=== PATIENT | male | born 1945 | race Caucasian/White ===

== ENCOUNTER → 2016-03-31 | Outpatient (CLI) | payer MEDICARE | END | disposition home or self-care (01) | LOC: LABWHC1 08:18 | PROVIDERS: ATTEND Internal Medicine Endocrinology, Diabetes & Metabolism | DX: E11.65 Type 2 diabetes mellitus with hyperglycemia (principal) | CPT/HCPCS: 82043 ==

== ENCOUNTER → 2016-07-04 | Outpatient (CLI) | payer MEDICARE ==
[2016-07-04 10:45] LABS: ALT 30 U/L (21-72); AST 18 U/L (17-59); Alkaline Phosphatase 65 U/L (38-126); Anion Gap 10 mmol/L; Blood Urea Nitrogen 24 mg/dL (9-20); Calcium 9.6 mg/dL (8.4-10.2); Carbon Dioxide 29 mmol/L (22-30); Chloride 105 mmol/L (98-107); Cholesterol 179 mg/dL (<200); Glucose 134 mg/dL (74-99); HDL Cholesterol 39 mg/dL (40-60); Non-African American GFR(MDRD) >60 (>60 ml/min/1.73 sqM); Potassium 4.7 mmol/L (3.5-5.1); Sodium 144 mmol/L (137-145); Total Bilirubin 0.6 mg/dL (0.2-1.3); Total Protein 7.5 g/dL (6.3-8.2); Triglycerides 119 mg/dL (<150)
== END | disposition home or self-care (01) ==
LOC: LABWHC1 07:52
PROVIDERS: ATTEND Internal Medicine Endocrinology, Diabetes & Metabolism
DX: E11.65 Type 2 diabetes mellitus with hyperglycemia (principal)
CPT/HCPCS: 36415; 80053; 80061; 82043

== ENCOUNTER → 2017-01-24 | Outpatient (CLI) | payer MEDICARE ==
[2017-01-24 09:52] LABS: ALT 41 U/L (21-72); AST 19 U/L (17-59); Alkaline Phosphatase 66 U/L (38-126); Anion Gap 10 mmol/L; Blood Urea Nitrogen 23 mg/dL (9-20); Calcium 9.6 mg/dL (8.4-10.2); Carbon Dioxide 29 mmol/L (22-30); Chloride 105 mmol/L (98-107); Cholesterol 161 mg/dL (<200); Glucose 129 mg/dL (74-99); HDL Cholesterol 43 mg/dL (40-60); Non-African American GFR(MDRD) >60 (>60 ml/min/1.73 sqM); Potassium 4.7 mmol/L (3.5-5.1); Sodium 144 mmol/L (137-145); Total Bilirubin 0.6 mg/dL (0.2-1.3); Total Protein 7.6 g/dL (6.3-8.2)
[2017-01-24 17:21] LABS: Urine Creatinine 235.6 mg/dL
== END | disposition home or self-care (01) ==
LOC: LABWHC1 08:53
PROVIDERS: ATTEND Internal Medicine Endocrinology, Diabetes & Metabolism
DX: E11.65 Type 2 diabetes mellitus with hyperglycemia (principal)
CPT/HCPCS: 36415; 80053; 80061; 82043; 82570; 83036; 84443

== ENCOUNTER → 2017-10-10 | Outpatient (CLI) | payer MEDICARE ==
[2017-10-10 09:57] LABS: Albumin 4.1 g/dL (3.5-5.0); Calcium 9.5 mg/dL (8.4-10.2); Potassium 5.1 mmol/L (3.5-5.1); Total Bilirubin 0.6 mg/dL (0.2-1.3)
[2017-10-10 20:02] LABS: Hemoglobin A1C 8.9 % (4.0-6.0)
== END | disposition home or self-care (01) ==
LOC: LABWHC1 08:49
PROVIDERS: ATTEND Internal Medicine Endocrinology, Diabetes & Metabolism
DX: E11.65 Type 2 diabetes mellitus with hyperglycemia (principal); E29.1 Testicular hypofunction
CPT/HCPCS: 36415; 80053; 80061; 82043; 82570; 83036; 84403

== ENCOUNTER → 2017-12-05 | Outpatient (CLI) | payer MEDICARE ==
[2017-12-05 19:07] LABS: Shrimp IgE <0.10 kU/L; Soybean IgE <0.10 kU/L
[2017-12-05 19:08] LABS: Clam IgE <0.10 kU/L; Egg White IgE <0.10 kU/L; Scallop IgE <0.10 kU/L; Walnut IgE (Food) <0.10 kU/L
[2017-12-05 19:09] LABS: Codfish IgE <0.10 kU/L
[2017-12-05 19:10] LABS: Dermato. farinae IgE <0.10 kU/L; Peanut IgE <0.10 kU/L
[2017-12-05 19:11] LABS: Cat Epith & Dander IgE 0.24 kU/L; Dog Dander IgE 0.18 kU/L
[2017-12-05 19:12] LABS: Alternaria alternata IgE <0.10 kU/L; Cockroach IgE <0.10 kU/L
[2017-12-05 19:13] LABS: Birch IgE <0.10 kU/L; Maple (Box Elder) IgE <0.10 kU/L; Oak IgE <0.10 kU/L
[2017-12-05 19:14] LABS: Elm IgE <0.10 kU/L; Ragweed,Common IgE <0.10 kU/L
[2017-12-05 19:15] LABS: Red Top (Bentgrass) IgE <0.10 kU/L
== END ==
LOC: LABWHC1 08:30
PROVIDERS: ATTEND Internal Medicine Critical Care Medicine
DX: J45.40 Moderate persistent asthma, uncomplicated (principal)
CPT/HCPCS: 36415; 82785; 86003

== ENCOUNTER → 2018-06-26 | Outpatient (CLI) | payer MEDICARE ==
[2018-06-26 18:34] LABS: Albumin 4.5 g/dL (3.80-4.90); Albumin/Globulin Ratio 2.25 (1.60-3.17); Anion Gap 11.4 mmol/L (4.00-12.00); Calcium 9.2 mg/dL (8.7-10.3); Carbon Dioxide 23.6 mmol/L (21.6-31.8); LDL Cholesterol,Calculated 82.8 mg/dL (0.0-131.0); Potassium 4.1 mmol/L (3.5-5.5); Total Bilirubin 0.5 mg/dL (0.2-1.2); Total Protein 6.5 g/dL (6.2-8.2); VLDL Calculation 23.2 mg/dL (5.00-40.00)
== END | disposition home or self-care (01) ==
LOC: LABWHC1 08:48
PROVIDERS: ATTEND Internal Medicine Endocrinology, Diabetes & Metabolism
DX: E11.65 Type 2 diabetes mellitus with hyperglycemia (principal)
CPT/HCPCS: 36415; 80053; 80061; 82043; 82570; 84443

== ENCOUNTER → 2018-10-17 | Outpatient (CLI) | payer MEDICARE ==
[2018-10-17 08:56] LABS: Basophils % (A) 0 %; Eosinophils # (A) 0.2 k/uL (0-0.7); Eosinophils % (A) 3 %; HCT 45.6 % (39.0-53.0); HGB 14.7 gm/dL (13.0-17.5); Lymphocytes % (A) 26 %; MCH 31.1 pg (25.0-35.0); MCHC 32.2 g/dL (31.0-37.0); MCV 96.5 fL (80.0-100.0); Mean Platelet Volume 7.8; Monocytes # (A) 0.5 k/uL (0-1.0); Monocytes % (A) 6 %; Neutrophils # (A) 4.7 k/uL (1.3-7.7); Neutrophils % (A) 63 %; Platelet Count 194 k/uL (150-450); RBC 4.72 m/uL (4.30-5.90); RDW 13.4 % (11.5-15.5); WBC 7.5 k/uL (3.8-10.6)
[2018-10-17 16:22] LABS: African American GFR (CKD) 76.2 (60.0-200.0); Albumin 4.4 g/dL (3.80-4.90); Anion Gap 11.5 mmol/L (4.00-12.00); BUN/Creat Ratio 21.82 Ratio (12.00-20.00); Bilirubin, Conjugated 0.2 mg/dL (0.20-0.40); Bilirubin,Unconjugated 0.3 mg/dL; Calcium 9.4 mg/dL (8.7-10.3); Carbon Dioxide 26.5 mmol/L (21.6-31.8); Globulin 2.2 g/dL (1.6-3.3); LDL Cholesterol,Calculated 88.6 mg/dL (0.0-131.0); Potassium 5.1 mmol/L (3.5-5.5); Total Bilirubin 0.5 mg/dL (0.2-1.2); Total Protein 6.6 g/dL (6.2-8.2); VLDL Calculation 17.4 mg/dL (5.00-40.00)
[2018-10-17 16:29] LABS: T4, Free (Free Thyroxine) 1.1 ng/dL (0.80-1.80)
[2018-10-17 19:51] LABS: Hemoglobin A1C 7.6 % (4.0-6.0)
== END | disposition home or self-care (01) ==
LOC: LABWHC1 08:15
PROVIDERS: ATTEND Internal Medicine Critical Care Medicine
DX: Z00.00 Encounter for general adult medical examination without abnormal findings (principal); I10 Essential (primary) hypertension; E78.5 Hyperlipidemia, unspecified; E11.9 Type 2 diabetes mellitus without complications; R53.83 Other fatigue; R05 Cough; Z79.899 Other long term (current) drug therapy; Z12.5 Encounter for screening for malignant neoplasm of prostate
CPT/HCPCS: 84439; 84481; 80061; 80053; 82248; 84443; 85025; 82306; 83036; 36415; G0103

== ENCOUNTER → 2019-07-10 | Outpatient (CLI) | payer MEDICARE ==
[2019-07-10 15:23] LABS: African American GFR (CKD) 61.9 (60.0-200.0); Albumin 4.3 g/dL (3.80-4.90); Albumin/Globulin Ratio 1.72 (1.60-3.17); Anion Gap 7.9 mmol/L (4.00-12.00); BUN/Creat Ratio 20.77 Ratio (12.00-20.00); Calcium 9.1 mg/dL (8.7-10.3); Carbon Dioxide 26.1 mmol/L (21.6-31.8); Chol/HDL Ratio 3.57; Globulin 2.5 g/dL (1.6-3.3); LDL Cholesterol,Calculated 73.2 mg/dL (0.0-131.0); Non-African American GFR(CKD) 53.4 (60.0-200.0); Total Bilirubin 0.4 mg/dL (0.2-1.2); Total Protein 6.8 g/dL (6.2-8.2); VLDL Calculation 21.8 mg/dL (5.00-40.00)
[2019-07-10 16:28] LABS: Urine Creatinine 151.3 mg/dL
== END | disposition home or self-care (01) ==
LOC: LABWHC1 08:12
PROVIDERS: ATTEND Internal Medicine Endocrinology, Diabetes & Metabolism
DX: E11.65 Type 2 diabetes mellitus with hyperglycemia (principal)
CPT/HCPCS: 36415; 80053; 80061; 82043; 82570; 84443

== ENCOUNTER → 2019-10-29 | Outpatient (CLI) | payer MEDICARE ==
[2019-10-29 09:11] LABS: Basophils # (A) 0.1 k/uL (0-0.2); Basophils % (A) 1 %; Eosinophils # (A) 0.5 k/uL (0-0.7); Eosinophils % (A) 6 %; HCT 42.6 % (39.0-53.0); HGB 13.7 gm/dL (13.0-17.5); Lymphocytes # (A) 2.3 k/uL (1.0-4.8); Lymphocytes % (A) 28 %; MCH 30.6 pg (25.0-35.0); MCHC 32.2 g/dL (31.0-37.0); MCV 95.1 fL (80.0-100.0); Mean Platelet Volume 8.5; Monocytes # (A) 0.4 k/uL (0-1.0); Monocytes % (A) 5 %; Neutrophils # (A) 4.7 k/uL (1.3-7.7); Neutrophils % (A) 59 %; Platelet Count 197 k/uL (150-450); RBC 4.47 m/uL (4.30-5.90); WBC 8.1 k/uL (3.8-10.6)
[2019-10-29 17:18] LABS: African American GFR (CKD) 56.2 (60.0-200.0); Albumin 4.3 g/dL (3.80-4.90); Albumin/Globulin Ratio 1.72 (1.60-3.17); BUN/Creat Ratio 19.29 Ratio (12.00-20.00); Calcium 9.4 mg/dL (8.7-10.3); Chol/HDL Ratio 3.76; Globulin 2.5 g/dL (1.6-3.3); LDL Cholesterol,Calculated 69.8 mg/dL (0.0-131.0); Non-African American GFR(CKD) 48.5 (60.0-200.0); Potassium 4.9 mmol/L (3.5-5.5); Total Bilirubin 0.4 mg/dL (0.3-1.2); Total Protein 6.8 g/dL (6.2-8.2); VLDL Calculation 24.2 mg/dL (5.00-40.00)
[2019-10-29 17:25] LABS: PSA Annual Screen 1.1 ng/mL (0.0-4.0); T4, Free (Free Thyroxine) 1.1 ng/dL (0.80-1.80)
[2019-10-29 18:46] LABS: Hemoglobin A1C 6.6 % (4.0-6.0)
== END | disposition home or self-care (01) ==
LOC: LABWHC1 08:16
PROVIDERS: ATTEND Internal Medicine Critical Care Medicine
DX: I10 Essential (primary) hypertension (principal); E11.9 Type 2 diabetes mellitus without complications; E78.5 Hyperlipidemia, unspecified; I63.9 Cerebral infarction, unspecified
CPT/HCPCS: 84439; 80061; 80053; 84443; 85025; 82306; 83036; 36415; G0103

== ENCOUNTER → 2020-06-21 | Outpatient (CLI) | payer MEDICARE ==
[2020-06-21 14:54] LABS: African American GFR (CKD) 75.2 (60.0-200.0); Albumin 4.4 g/dL (3.80-4.90); Albumin/Globulin Ratio 1.91 (1.60-3.17); Anion Gap 3.6 mmol/L (4.00-12.00); BUN/Creat Ratio 18.18 Ratio (12.00-20.00); Calcium 9.5 mg/dL (8.7-10.3); Carbon Dioxide 29.4 mmol/L (21.6-31.8); Chol/HDL Ratio 4.09; Globulin 2.3 g/dL (1.6-3.3); LDL Cholesterol,Calculated 81.6 mg/dL (0.0-131.0); Non-African American GFR(CKD) 64.9 (60.0-200.0); Potassium 5.3 mmol/L (3.5-5.5); Total Bilirubin 0.4 mg/dL (0.2-1.2); Total Protein 6.7 g/dL (6.2-8.2); VLDL Calculation 23.4 mg/dL (5.00-40.00)
[2020-06-21 16:44] LABS: Hemoglobin A1C 6.9 % (4.0-6.0)
[2020-06-21 18:06] LABS: Urine Creatinine 135.1 mg/dL
== END | disposition home or self-care (01) ==
LOC: LABWHC1 07:29
PROVIDERS: ATTEND Internal Medicine Endocrinology, Diabetes & Metabolism
DX: E11.65 Type 2 diabetes mellitus with hyperglycemia (principal)
CPT/HCPCS: 36415; 80053; 80061; 82043; 82570; 83036; 84443

== ENCOUNTER → 2021-02-03 | Outpatient (CLI) | payer MEDICARE ==
[2021-02-03 16:05] LABS: ALT 26 U/L (10-49); AST 19 U/L (14-35); African American GFR (CKD) 69.3 (60.0-200.0); Albumin 4.4 g/dL (3.8-4.9); Albumin/Globulin Ratio 1.63 (1.60-3.17); Alkaline Phosphatase 71 U/L (41-126); Calcium 9.5 mg/dL (8.7-10.3); Carbon Dioxide 25.7 mmol/L (20.0-27.5); Chloride 106 mmol/L (96-109); Chol/HDL Ratio 3.65 Ratio; Globulin 2.7 g/dL (1.6-3.3); Glucose 140 mg/dL (70-110); LDL Cholesterol,Calculated 74.5 mg/dL (0.0-131.0); Non-African American GFR(CKD) 59.8 (60.0-200.0); Sodium 143 mmol/L (135-145); Total Protein 7.2 g/dL (6.2-8.2)
== END | disposition home or self-care (01) ==
LOC: LABWHC1 08:11
PROVIDERS: ATTEND Internal Medicine Endocrinology, Diabetes & Metabolism
DX: E11.65 Type 2 diabetes mellitus with hyperglycemia (principal)
CPT/HCPCS: 36415; 80053; 80061; 82043; 82570; 83036; 84443

== ENCOUNTER → 2021-09-27 | Outpatient (CLI) | payer MEDICARE ==
[2021-09-27 10:53] LABS: ALT 21 U/L (10-49); AST 21 U/L (14-35); African American GFR (CKD) 67.2 (60.0-200.0); Albumin 4.3 g/dL (3.8-4.9); Albumin/Globulin Ratio 1.39 (1.60-3.17); Alkaline Phosphatase 63 U/L (41-126); BUN/Creat Ratio 22.08 Ratio (12.00-20.00); Blood Urea Nitrogen 26.5 mg/dL (9.0-27.0); Calcium 9.4 mg/dL (8.7-10.3); Carbon Dioxide 21.2 mmol/L (20.0-27.5); Chloride 105 mmol/L (96-109); Chol/HDL Ratio 3.73 Ratio; Globulin 3.1 g/dL (1.6-3.3); Glucose 168 mg/dL (70-110); LDL Cholesterol,Calculated 83.1 mg/dL (0.0-131.0); Potassium 4.9 mmol/L (3.5-5.5); Sodium 139 mmol/L (135-145); Total Protein 7.4 g/dL (6.2-8.2)
== END | disposition home or self-care (01) ==
LOC: LABWHC1 07:42
PROVIDERS: ATTEND Internal Medicine Endocrinology, Diabetes & Metabolism
DX: E11.65 Type 2 diabetes mellitus with hyperglycemia (principal)
CPT/HCPCS: 36415; 80053; 80061; 83036; 84443

== ENCOUNTER → 2021-11-02 | Outpatient (CLI) | payer MEDICARE ==
[2021-11-02 14:19] LABS: Basophils # (A) 0.04 X 10*3/uL (0.00-0.10); Basophils % (A) 0.5 %; Eosinophils # (A) 0.49 X 10*3/uL (0.04-0.35); Eosinophils % (A) 6.5 %; HCT 41.2 % (39.6-50.0); HGB 13.4 g/dL (13.0-17.0); Immature Grans, Automated 0.5 %; Lymphocytes # (A) 1.99 X 10*3/uL (0.90-5.00); Lymphocytes % (A) 26.3 %; MCH 30.9 pg (27.0-32.0); MCHC 32.5 g/dL (32.0-37.0); MCV 95.2 fL (80.0-97.0); Mean Platelet Volume 10.9 fL (9.5-12.2); Monocytes # (A) 0.53 X 10*3/uL (0.20-1.00); NRBC Per 100 WBC 0 /100 WBCS (0.0-0.0); Neutrophils # (A) 4.49 X 10*3/uL (1.80-7.70); Neutrophils % (A) 59.2 %; Platelet Count 216 X 10*3/uL (140-440); RBC 4.33 X 10*6/uL (4.40-5.60); RDW 12.9 % (11.5-14.5); WBC 7.58 X 10*3/uL (4.50-10.00)
[2021-11-02 14:45] LABS: PSA Annual Screen 1.3 ng/mL (0.000-4.000)
== END | disposition home or self-care (01) ==
LOC: LABWHC1 07:47
PROVIDERS: ATTEND Internal Medicine Critical Care Medicine
DX: Z00.00 Encounter for general adult medical examination without abnormal findings (principal); Z12.5 Encounter for screening for malignant neoplasm of prostate; I10 Essential (primary) hypertension; I63.9 Cerebral infarction, unspecified; E78.5 Hyperlipidemia, unspecified; E11.9 Type 2 diabetes mellitus without complications; J45.909 Unspecified asthma, uncomplicated
CPT/HCPCS: 85025; 82306; 36415; G0103

== ENCOUNTER 2021-11-13 20:14 | Observation (INO) | payer MEDICARE ==
--- NOTE | 2021-11-13 20:28 | ED ---
General Adult HPI - General Chief complaint: Weakness Stated complaint: Weakness Time Seen by Provider: 11/13/21 20:15 Source: patient, EMS Mode of arrival: EMS Limitations: no limitations - History of Present Illness Initial comments: Patient presents to the ED by ambulance for evaluation. Patient states that he has felt generally weak for the past couple of days and he has fallen a couple times today without any injury. Patient also admits to having a cough and congestion for the past couple of days, and he states that he tested positive for Covid on a home test today. Patient denies having any other symptoms or complaints. Patient denies having any pain, fever or chills, headache, head injury, LOC, focal numbness/weakness/neuro deficit, neck/back/extremity pain, sore throat, chest pain or pressure, dyspnea, hemoptysis, palpitations, syncope, abdominal pain, nausea/vomiting/diarrhea, bloody or melanotic stool, dysuria or urinary symptoms, leg or calf swelling or pain, or any other symptoms or complaints. Patient states that he Covid-vaccinated, but he states that he has not received a booster shot. - Related Data Home Medications Medication Instructions Recorded Confirmed Acetaminophen Tab [Tylenol] 650 mg PO Q6H PRN 01/16/14 01/16/14 Aspirin EC [Ecotrin] 81 mg PO DAILY 01/16/14 01/16/14 Cetirizine HCl [Zyrtec] 10 mg PO HS 01/16/14 01/16/14 Cholecalciferol [Vitamin D3] 1 each PO AC-BRKFST 01/16/14 01/16/14 Diclofenac Sodium [Voltaren] 50 mg PO BID 01/16/14 01/16/14 Fluticasone Propionate [Flonase] 1 spray EA NOSTRIL DAILY 01/16/14 01/16/14 Insulin Aspart [Novolog Flexpen] 22 units SQ AC-BRKFST 01/16/14 01/16/14 Insulin Aspart [Novolog Flexpen] 22 units SQ AC-LUNCH 01/16/14 01/16/14 Insulin Aspart [Novolog Flexpen] 24 units SQ AC-SUPPER 01/16/14 01/16/14 Insulin Glargine,Hum.rec.anlog 42 units SQ HS 01/16/14 01/16/14 [Lantus Solostar] Simvastatin [Zocor] 20 mg PO Q48H 01/16/14 01/16/14 Testosterone Cypionate 200 mg IM QMONTH 01/16/14 01/16/14 [Depo-Testosterone] amLODIPine BESYLATE/BENAZEPRIL 1 each PO AC-SUPPER 01/16/14 01/16/14 [Amlodipine-Benazepril 5-10 mg] Allergies Allergy/AdvReac Type Severity Reaction Status Date / Time No Known Allergies Allergy Verified 01/16/14 09:02 Review of Systems ROS Statement: Those systems with pertinent positive or pertinent negative responses have been documented in the HPI. ROS Other: All systems not noted in ROS Statement are negative. Past Medical History Past Medical History: Diabetes Mellitus, Hyperlipidemia, Hypertension History of Any Multi-Drug Resistant Organisms: None Reported Past Surgical History: Orthopedic Surgery Past Psychological History: No Psychological Hx Reported Past Alcohol Use History: None Reported Past Drug Use History: None Reported General Exam Limitations: no limitations General appearance: alert, in no apparent distress Head exam: Present: atraumatic, normocephalic Eye exam: Present: normal appearance, PERRL, EOMI ENT exam: Present: normal oropharynx, mucous membranes moist Neck exam: Present: other (Trachea is in midline). Absent: tenderness Respiratory exam: Present: normal lung sounds bilaterally. Absent: respiratory distress, wheezes, rales, rhonchi, stridor Cardiovascular Exam: Present: regular rate, normal rhythm, normal heart sounds, other (Normal radial pulses bilaterally) GI/Abdominal exam: Present: soft. Absent: distended, tenderness, guarding Extremities exam: Present: full ROM, other (Negative Homans sign bilaterally). Absent: tenderness, pedal edema, calf tenderness Back exam: Absent: tenderness Neurological exam: Present: alert, oriented X3, CN II-XII intact. Absent: motor sensory deficit Psychiatric exam: Present: normal affect, normal mood Skin exam: Present: warm, dry, intact, normal color Course Vital Signs 11/13/21 20:24 Temperature 98.7 F Pulse Rate 97 Respiratory 18 Rate Blood Pressure 138/82 O2 Sat by Pulse 96 Oximetry - Reevaluation(s) Reevaluation #1: 11/13/21 22:38 Patient's is now at bedside with the patient. Patient's reports that she called for an ambulance for the patient because the patient is weak and she was not able to get him up when he fell at home. She states that she does not feel that she can take care of the patient at home, and she is requesting that he be admitted to the hospital. Patient remains alert and breathing comfortably with a normal room air oxygen saturation. Patient and are both aware of the patient's test results and Covid diagnosis. 11/13/21 22:49 Case, H&P, test results and ED management thus far were discussed with Dr. Ross. She accepts hospital admission. She has no further recommendations at this wilbert e. EKG Findings - EKG Comments: EKG Findings:: Sinus rhythm with first-degree AV block, ventricular rate of 92 bpm, no ectopy, [place] interval of 222 ms, normal QRS duration, normal QT interval, leftward axis, no ST or T-wave abnormality Medical Decision Making - Medical Decision Making I suspect that the patient's generalized weakness and symptoms are likely due to COVID-19 infection. Patient is breathing comfortably with a normal room air oxygen saturation. Patient's chest x-ray is negative. Patient's labs are fairly unremarkable. does not feel comfortable taking the patient home given his generalized weakness. She states that she does not feel that she can take care of the patient home, and she has requested that he be admitted to the hospital. Dr. Ross has accepted hospital admission. - Lab Data Result diagrams: 11/13/21 20:35 11/13/21 20:35 Lab Results 11/13/21 11/13/21 11/13/21 Range/Units 20:30 20:35 20:35 WBC 6.2 (3.8-10.6) k/uL RBC 4.14 L (4.30-5.90) m/uL Hgb 12.9 L (13.0-17.5) gm/dL Hct 39.4 (39.0-53.0) % MCV 95.2 (80.0-100.0) fL MCH 31.2 (25.0-35.0) pg MCHC 32.8 (31.0-37.0) g/dL RDW 12.9 (11.5-15.5) % Plt Count 162 (150-450) k/uL MPV 8.4 Neutrophils % 71 % Lymphocytes % 16 % Monocytes % 9 % Eosinophils % 2 % Basophils % 2 % Neutrophils # 4.4 (1.3-7.7) k/uL Lymphocytes # 1.0 (1.0-4.8) k/uL Monocytes # 0.5 (0-1.0) k/uL Eosinophils # 0.1 (0-0.7) k/uL Basophils # 0.1 (0-0.2) k/uL PT 10.5 (9.0-12.0) sec INR 1.0 (<1.2) APTT 25.8 (22.0-30.0) sec Sodium (137-145) mmol/L Potassium (3.5-5.1) mmol/L Chloride (98-107) mmol/L Carbon Dioxide (22-30) mmol/L Anion Gap mmol/L BUN (9-20) mg/dL Creatinine (0.66-1.25) mg/dL Est GFR (CKD-EPI)AfAm (>60 ml/min/1.73 sqM) Est GFR (CKD-EPI)NonAf (>60 ml/min/1.73 sqM) Glucose (74-99) mg/dL Plasma Lactic Acid Brannon (0.7-2.0) mmol/L Calcium (8.4-10.2) mg/dL Magnesium (1.6-2.3) mg/dL Total Bilirubin (0.2-1.3) mg/dL AST (17-59) U/L ALT (4-49) U/L Alkaline Phosphatase (38-126) U/L Troponin I (0.000-0.034) ng/mL Total Protein (6.3-8.2) g/dL Albumin (3.5-5.0) g/dL Coronavirus (PCR) Detected A (Not Detectd) 11/13/21 11/13/21 11/13/21 Range/Units 20:35 20:35 20:35 WBC (3.8-10.6) k/uL RBC (4.30-5.90) m/uL Hgb (13.0-17.5) gm/dL Hct (39.0-53.0) % MCV (80.0-100.0) fL MCH (25.0-35.0) pg MCHC (31.0-37.0) g/dL RDW (11.5-15.5) % Plt Count (150-450) k/uL MPV Neutrophils % % Lymphocytes % % Monocytes % % Eosinophils % % Basophils % % Neutrophils # (1.3-7.7) k/uL Lymphocytes # (1.0-4.8) k/uL Monocytes # (0-1.0) k/uL Eosinophils # (0-0.7) k/uL Basophils # (0-0.2) k/uL PT (9.0-12.0) sec INR (<1.2) APTT (22.0-30.0) sec Sodium 137 (137-145) mmol/L Potassium 4.1 (3.5-5.1) mmol/L Chloride 104 (98-107) mmol/L Carbon Dioxide 22 (22-30) mmol/L Anion Gap 11 mmol/L BUN 20 (9-20) mg/dL Creatinine 1.02 (0.66-1.25) mg/dL Est GFR (CKD-EPI)AfAm 81 (>60 ml/min/1.73 sqM) Est GFR (CKD-EPI)NonAf 70 (>60 ml/min/1.73 sqM) Glucose 144 H (74-99) mg/dL Plasma Lactic Acid Brannon 0.8 (0.7-2.0) mmol/L Calcium 8.5 (8.4-10.2) mg/dL Magnesium 2.1 (1.6-2.3) mg/dL Total Bilirubin 0.3 (0.2-1.3) mg/dL AST 23 (17-59) U/L ALT 22 (4-49) U/L Alkaline Phosphatase 71 (38-126) U/L Troponin I <0.012 (0.000-0.034) ng/mL Total Protein 6.6 (6.3-8.2) g/dL Albumin 4.0 (3.5-5.0) g/dL Coronavirus (PCR) (Not Detectd) - Radiology Data Chest x-ray: No active cardiopulmonary disease. Normal heart. Disposition Clinical Impression: Generalized weakness, COVID-19 virus infection Disposition: ADMITTED IP TO THIS HOSP Condition: Stable Is patient prescribed a controlled substance at d/c from ED?: No Referrals: Bibi Gonzalez MD [STAFF PHYSICIAN] - 1-2 days Time of Disposition: 22:59
[2021-11-13 20:49] LABS: Basophils # (A) 0.1 k/uL (0-0.2); Basophils % (A) 2 %; Eosinophils # (A) 0.1 k/uL (0-0.7); Eosinophils % (A) 2 %; HCT 39.4 % (39.0-53.0); HGB 12.9 gm/dL (13.0-17.5); Lymphocytes % (A) 16 %; MCH 31.2 pg (25.0-35.0); MCHC 32.8 g/dL (31.0-37.0); MCV 95.2 fL (80.0-100.0); Mean Platelet Volume 8.4; Monocytes # (A) 0.5 k/uL (0-1.0); Monocytes % (A) 9 %; Neutrophils # (A) 4.4 k/uL (1.3-7.7); Neutrophils % (A) 71 %; Platelet Count 162 k/uL (150-450); RBC 4.14 m/uL (4.30-5.90); RDW 12.9 % (11.5-15.5); WBC 6.2 k/uL (3.8-10.6)
--- NOTE | 2021-11-13 21:07 | XR ---
EXAMINATION TYPE: XR chest 1V portable DATE OF EXAM: 11/13/2021 COMPARISON: NONE HISTORY: Weakness TECHNIQUE: Single view FINDINGS: Heart and mediastinum are normal. Lungs are clear. Diaphragm is normal. Bony thorax appears intact. There are no hilar masses. IMPRESSION: No active cardiopulmonary disease. Normal heart.
[2021-11-13 21:17] LABS: Calcium 8.5 mg/dL (8.4-10.2); Magnesium 2.1 mg/dL (1.6-2.3); Potassium 4.1 mmol/L (3.5-5.1); Total Bilirubin 0.3 mg/dL (0.2-1.3); Total Protein 6.6 g/dL (6.3-8.2)
[2021-11-13 21:50] LABS: Partial Thromboplastin Time 25.8 sec (22.0-30.0); Prothrombin Time 10.5 sec (9.0-12.0)
[2021-11-14 02:13] LABS: Appearance,Urine Clear (Clear); Bilirubin,Urine Negative (Negative); Blood,Urine Negative (Negative); Color,Urine Yellow; Glucose,Urine (UA) Negative (Negative); Ketones,Urine 2+ (Negative); Leukocyte Esterase,Urine Negative (Negative); Mucus,Urine Rare /hpf; Nitrite,Urine Negative (Negative); PH, Urine 5.5 (5.0-8.0); Protein,Urine 1+ (Negative); RBC,Urine 1 /hpf (0-5); Specific Gravity,Urine 1.023 (1.001-1.035); Squamous Epithelial Cell,Urine <1 /hpf (0-4); Urobilinogen,Urine <2.0 mg/dL (<2.0); WBC,Urine <1 /hpf (0-5)
[2021-11-14 05:26] LABS: ALT 21 U/L (4-49); AST 25 U/L (17-59); African American GFR (CKD) >90 (>60 ml/min/1.73 sqM); Alkaline Phosphatase 71 U/L (38-126); Anion Gap 10 mmol/L; Blood Urea Nitrogen 17 mg/dL (9-20); Calcium 8.5 mg/dL (8.4-10.2); Carbon Dioxide 23 mmol/L (22-30); Chloride 103 mmol/L (98-107); Glucose 141 mg/dL (74-99); Non-African American GFR(CKD) 79 (>60 ml/min/1.73 sqM); Potassium 4.2 mmol/L (3.5-5.1); Sodium 136 mmol/L (137-145); Total Bilirubin 0.4 mg/dL (0.2-1.3); Total Protein 6.5 g/dL (6.3-8.2)
[2021-11-14 05:43] LABS: Basophils % (A) 1 %; Eosinophils % (A) 1 %; HCT 40.9 % (39.0-53.0); HGB 12.8 gm/dL (13.0-17.5); Lymphocytes # (A) 1.2 k/uL (1.0-4.8); Lymphocytes % (A) 22 %; MCH 30.2 pg (25.0-35.0); MCHC 31.2 g/dL (31.0-37.0); MCV 96.6 fL (80.0-100.0); Mean Platelet Volume 8.8; Monocytes # (A) 0.5 k/uL (0-1.0); Monocytes % (A) 9 %; Neutrophils # (A) 3.6 k/uL (1.3-7.7); Neutrophils % (A) 66 %; Platelet Count 156 k/uL (150-450); RBC 4.24 m/uL (4.30-5.90); RDW 12.9 % (11.5-15.5); WBC 5.5 k/uL (3.8-10.6)
[2021-11-14 07:29] LABS: Glucose,Whole Blood 142 mg/dL (70-110)
[2021-11-14] MEDS ORDERED: DEXTROSE 50% SYRINGE 50 ML IVP PRN ×2 (10:17)
[2021-11-14 11:19] LABS: Glucose,Whole Blood 140 mg/dL (70-110)
[2021-11-14] MEDS: INSULIN ASPART (NovoLOG) 100 UNIT/ML VIAL SQ SCH ×5 (11:19→21:54)
[2021-11-14] MEDS: ASPIRIN 81 MG PO SCH (11:23)
[2021-11-14] MEDS: MULTIVITAMINS, THERA 1 EACH TAB PO SCH (11:23)
[2021-11-14] MEDS: FLUTICASONE 50MCG/SPRAY NASAL 16GM EA NOSTRIL SCH (11:23)
[2021-11-14] MEDS: ETODOLAC 200 MG CAPSULE PO SCH ×2 (11:23→21:54)
[2021-11-14] MEDS: ALBUTEROL HFA INHALER INHALATION SCH ×3 (12:14→19:12)
--- NOTE | 2021-11-14 12:32 | P.HPIM ---
History of Present Illness Patient is a pleasant 76-year-old male came in for generalized weakness and patient had posed to COVID-19. Chest x-ray did not show any significant abnormality patient is not requiring oxygen at this time and had the falls at home as well patient lives with his who cannot take care of him. REVIEW OF SYSTEMS: CONSTITUTIONAL: No fever. HEENT: No recent visual problems or hearing problems. Denied any sore throat. CARDIOVASCULAR: No chest pain, orthopnea, PND, no palpitations, no syncope. PULMONARY: No shortness of breath, no cough, no hemoptysis. GASTROINTESTINAL: No diarrhea, no nausea, no vomiting, no abdominal pain. NEUROLOGICAL: No headaches, no weakness, no numbness. HEMATOLOGICAL: Denies any bleeding or petechiae. GENITOURINARY: Denies any burning micturition, frequency, or urgency. MUSCULOSKELETAL/RHEUMATOLOGICAL: Denies any joint pain, swelling, or any muscle pain. ENDOCRINE: Denies any polyuria or polydipsia. The rest of the 14-point review of systems is negative. PHYSICAL EXAMINATION: GENERAL: The patient is alert and oriented x3, not in any acute distress. Well developed, well nourished. HEENT: Pupils are round and equally reacting to light. EOMI. No scleral icterus. No conjunctival pallor. Normocephalic, atraumatic. No pharyngeal erythema. No thyromegaly. CARDIOVASCULAR: S1 and S2 present. No murmurs, rubs, or gallops. PULMONARY: Chest is clear to auscultation, no wheezing or crackles. ABDOMEN: Soft, nontender, nondistended, normoactive bowel sounds. No palpable organomegaly. MUSCULOSKELETAL: No joint swelling or deformity. EXTREMITIES: No cyanosis, clubbing, or pedal edema. NEUROLOGICAL: Gross neurological examination did not reveal any new focal deficits. Significant generalized weakness. SKIN: No rashes. Assessment and plan Generalized weakness probably secondary to his related muscle atrophy. Patient does have COVID-19 which have made his weakness probably worse. Patient appears that he will need to placement at subacute rehabitation. Physical of Dr. garcia if he was consulted. -COVID-19 infection without any hypoxia, no further workup or treatment is needed at this time. 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 along with sliding scale titration depending on blood sugars next and-hyperlipidemia -Hypertension DVT prophylaxis: Lovenox Past Medical History Past Medical History: Diabetes Mellitus, Hyperlipidemia, Hypertension History of Any Multi-Drug Resistant Organisms: None Reported Past Surgical History: Orthopedic Surgery Past Psychological History: No Psychological Hx Reported Smoking Status: Never smoker Past Alcohol Use History: None Reported Past Drug Use History: None Reported - Past Family History Mother Family Medical History: Diabetes Mellitus Medications and Allergies Home Medications Medication Instructions Recorded Confirmed Type Aspirin EC [Ecotrin] 81 mg PO DAILY 01/16/14 11/14/21 History Diclofenac Sodium [Voltaren] 50 mg PO BID 01/16/14 11/14/21 History Fluticasone Propionate [Flonase] 2 spray EA NOSTRIL DAILY 01/16/14 11/14/21 History Insulin Aspart [Novolog Flexpen] See Protocol SQ AC-TID 01/16/14 11/14/21 History Insulin Glargine,Hum.rec.anlog 40 units SQ HS 01/16/14 11/14/21 History [Lantus Solostar] Simvastatin [Zocor] 20 mg PO HS 01/16/14 11/14/21 History Albuterol Sulfate [Albuterol 2 puff PO RT-Q4H 11/14/21 11/14/21 History Sulfate Hfa] Benazepril HCl [Lotensin] 20 mg PO DAILY 11/14/21 11/14/21 History Cyanocobalamin [Vitamin B-12 1,000 mcg SQ QMONTHLY 11/14/21 11/14/21 History Injection] Mometasone/Formoterol [Dulera 200 2 puff PO RT-BID 11/14/21 11/14/21 History Mcg-5 Mcg Inhaler] Montelukast Sodium [Singulair] 10 mg PO HS 11/14/21 11/14/21 History Multivitamins, Thera [Multivitamin 1 tab PO DAILY 11/14/21 11/14/21 History (formulary)] Allergies Allergy/AdvReac Type Severity Reaction Status Date / Time No Known Allergies Allergy Verified 11/14/21 10:02 Physical Exam Vitals: Vital Signs Temp Pulse Pulse Resp BP BP Pulse Ox 11/14/21 08:00 99.0 F 109 H 16 159/90 95 11/14/21 05:54 96 18 148/82 94 L 11/14/21 03:23 94 18 158/85 94 L 11/14/21 01:17 95 18 142/80 96 11/13/21 20:24 98.7 F 97 18 138/82 96 Intake and Output 11/13/21 11/14/21 11/14/21 22:59 06:59 14:59 Intake Total 120 Output Total 350 Balance -230 Intake: Oral 120 Output: Urine 350 Other: Weight 95.254 kg 95.254 kg Results CBC & Chem 7: 11/14/21 04:56 11/14/21 04:56 Labs: Abnormal Lab Results - Last 24 Hours (Table) 11/13/21 11/13/21 11/13/21 Range/Units 20:30 20:35 20:35 RBC 4.14 L (4.30-5.90) m/uL Hgb 12.9 L (13.0-17.5) gm/dL Sodium (137-145) mmol/L Glucose 144 H (74-99) mg/dL POC Glucose (mg/dL) (70-110) mg/dL Urine Protein (Negative) Urine Ketones (Negative) Urine Mucus (None) /hpf Coronavirus (PCR) Detected A (Not Detectd) 11/14/21 11/14/21 11/14/21 Range/Units 01:48 04:56 04:56 RBC 4.24 L (4.30-5.90) m/uL Hgb 12.8 L (13.0-17.5) gm/dL Sodium 136 L (137-145) mmol/L Glucose 141 H (74-99) mg/dL POC Glucose (mg/dL) (70-110) mg/dL Urine Protein 1+ H (Negative) Urine Ketones 2+ H (Negative) Urine Mucus Rare H (None) /hpf Coronavirus (PCR) (Not Detectd) 11/14/21 11/14/21 Range/Units 07:28 11:17 RBC (4.30-5.90) m/uL Hgb (13.0-17.5) gm/dL Sodium (137-145) mmol/L Glucose (74-99) mg/dL POC Glucose (mg/dL) 142 H 140 H (70-110) mg/dL Urine Protein (Negative) Urine Ketones (Negative) Urine Mucus (None) /hpf Coronavirus (PCR) (Not Detectd) Thrombosis Risk Factor Assmnt - Choose All That Apply Any of the Below Risk Factors Present?: Yes Each Factor Represents 1 point: Obesity (BMI >25) Each Risk Factor Represents 3 Points: Age 75 years or older Thrombosis Risk Factor Assessment Total Risk Factor Score: 4 Thrombosis Risk Factor Assessment Level: Moderate Risk
[2021-11-14] MEDS ORDERED: RX INFO: IV CONTRAST WAS GIVEN 1 EACH MISC MISCELLANE PRN (13:05)
--- NOTE | 2021-11-14 13:06 | P.CNPUL ---
History of Present Illness Consult date: 11/14/21 Chief complaint: Generalized weakness History of present illness: This is a 76-year-old male patient who was brought into the hospital because of generalized weakness a few days duration and the patient got weak to the point where he was unable to stand up and had fallen a couple of times without inflicting any IV injuries. He also reported to have some cough and congestion over the past couple of days and he tested positive for COVID 19, based on the home. It was not an outpatient basis. No significant respiratory distress and the patient's pulse ox remains above 90% on room air. He had limited cough. Minimal congestion. No issues with pain fever chills or headaches. No history of any head injury. No focal numbness or tingling. No nausea or vomiting or emesis. The patient states that. Been vaccinated and he has taken the original flu shots without taking any booster. In the emergency department, the patient was found to have no temperature, hemodynamically stable with a pulse ox of 96% on room air. EKG showed no acute abnormalities. The white cell count is 6.2 with hemoglobin of 12.9 and a platelet count of 162. Electrolytes were normal, creatinine was normal at 1.02 with a BUN of 20 and a sugar of 144. The patient's troponin was negative. Albumin was at 4.0. Lactic acid level was at 0.8 and LFTs are all within normal limits. Chest x-ray showed no acute cardiopulmonary abnormalities. Patient is slightly improved since yesterday. He is very weak still and he has profound generalized global weakness. He is on Levemir insulin 40 units once a day and NovoLog according to his scale. 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 He has also chronic white matter ischemic changes. Review of Systems Constitutional: Reports as per HPI, Reports fatigue, Reports weakness Eyes: denies as per HPI, denies blurred vision, denies bulging eye, denies decreased vision, denies diplopia, denies discharge, denies dry eye, denies irritation, denies itching, denies pain, denies photophobia, denies loss of peripheral vision, denies loss of vision, denies tunnel vision/blind spots Ears: deny: decreased hearing, ear discharge, earache, tinnitus Ears, nose, mouth and throat: Reports as per HPI Breasts: absent: as per HPI, gynecomastia Cardiovascular: Reports dyspnea on exertion Respiratory: Reports as per HPI Gastrointestinal: Reports as per HPI Musculoskeletal: Reports frequent falls, Reports gait dysfunction, Reports muscle weakness Musculoskeletal: absent: ankle pain, ankle stiffness, ankle swelling Integumentary: Reports as per HPI Neurological: Reports gait dysfunction, Reports motor disturbance Endocrine: Reports as per HPI Hematologic/Lymphatic: Reports as per HPI Allergic/Immunologic: Reports as per HPI Past Medical History Past Medical History: Diabetes Mellitus, Hyperlipidemia, Hypertension History of Any Multi-Drug Resistant Organisms: None Reported Past Surgical History: Orthopedic Surgery Past Psychological History: No Psychological Hx Reported Smoking Status: Never smoker Past Alcohol Use History: None Reported Past Drug Use History: None Reported - Past Family History Mother Family Medical History: Diabetes Mellitus Medications and Allergies Home Medications Medication Instructions Recorded Confirmed Type Aspirin EC [Ecotrin] 81 mg PO DAILY 01/16/14 11/14/21 History Diclofenac Sodium [Voltaren] 50 mg PO BID 01/16/14 11/14/21 History Fluticasone Propionate [Flonase] 2 spray EA NOSTRIL DAILY 01/16/14 11/14/21 History Insulin Aspart [Novolog Flexpen] See Protocol SQ AC-TID 01/16/14 11/14/21 History Insulin Glargine,Hum.rec.anlog 40 units SQ HS 01/16/14 11/14/21 History [Lantus Solostar] Simvastatin [Zocor] 20 mg PO HS 01/16/14 11/14/21 History Albuterol Sulfate [Albuterol 2 puff PO RT-Q4H 11/14/21 11/14/21 History Sulfate Hfa] Benazepril HCl [Lotensin] 20 mg PO DAILY 11/14/21 11/14/21 History Cyanocobalamin [Vitamin B-12 1,000 mcg SQ QMONTHLY 11/14/21 11/14/21 History Injection] Mometasone/Formoterol [Dulera 200 2 puff PO RT-BID 11/14/21 11/14/21 History Mcg-5 Mcg Inhaler] Montelukast Sodium [Singulair] 10 mg PO HS 11/14/21 11/14/21 History Multivitamins, Thera [Multivitamin 1 tab PO DAILY 11/14/21 11/14/21 History (formulary)] Allergies Allergy/AdvReac Type Severity Reaction Status Date / Time No Known Allergies Allergy Verified 11/14/21 10:02 Physical Exam Vitals: Vital Signs Temp Pulse Pulse Resp BP BP Pulse Ox 11/14/21 08:00 99.0 F 109 H 16 159/90 95 11/14/21 05:54 96 18 148/82 94 L 11/14/21 03:23 94 18 158/85 94 L 11/14/21 01:17 95 18 142/80 96 11/13/21 20:24 98.7 F 97 18 138/82 96 Intake and Output 11/13/21 11/14/21 11/14/21 22:59 06:59 14:59 Intake Total 120 Output Total 350 Balance -230 Intake: Oral 120 Output: Urine 350 Other: Weight 95.254 kg 95.254 kg The patient appeared well nourished and normally developed. Vital signs as documented. Head exam is unremarkable. No scleral icterus or corneal arcus noted. Neck is without jugular venous distension, thyromegaly, or carotid bruits. Carotid upstrokes are brisk bilaterally. Lungs are clear to auscultation and percussion. Cardiac exam reveals the PMI to be normally sized and situated. Rhythm is regular. First and second heart sounds normal. No murmurs, rubs or gallops. Abdominal exam reveals normal bowel sounds, no masses, no organomegaly and no aortic enlargement. Extremities are nonedematous and both femoral and pedal pulses are normal.Examination of the skin revealed no evidence of significant rashes, suspicious appearing nevi or other concerning lesions. On neurologic examination, the patient does have some motor weakness in the proximal muscles bilaterally at his weakness is out of symmetrical. He is awake and oriented 3. No facial asymmetry. Pupils are equal and reactive to light. No nystagmus. No clonus. Results - Laboratory Findings CBC and BMP: 11/14/21 04:56 11/14/21 04:56 PT/INR, D-dimer PT 10.5 sec (9.0-12.0) 11/13/21 20:35 INR 1.0 (<1.2) 11/13/21 20:35 Abnormal lab findings: Abnormal Labs 11/13/21 11/13/21 11/13/21 20:30 20:35 20:35 RBC 4.14 L Hgb 12.9 L Sodium Glucose 144 H POC Glucose (mg/dL) Urine Protein Urine Ketones Urine Mucus Coronavirus (PCR) Detected A 11/14/21 11/14/21 11/14/21 01:48 04:56 04:56 RBC 4.24 L Hgb 12.8 L Sodium 136 L Glucose 141 H POC Glucose (mg/dL) Urine Protein 1+ H Urine Ketones 2+ H Urine Mucus Rare H Coronavirus (PCR) 11/14/21 11/14/21 07:28 11:17 RBC Hgb Sodium Glucose POC Glucose (mg/dL) 142 H 140 H Urine Protein Urine Ketones Urine Mucus Coronavirus (PCR) - Diagnostic Findings Chest x-ray: image reviewed Assessment and Plan Plan: Acute COVID 19 infection in a 76-year-old male patient has been vaccinated 2, original series without taking the booster shots Generalized muscle weakness in all 4 extremities mainly proximal muscles. 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 We'll obtain a neurology consultation if needed.
[2021-11-14] MEDS: lisinopriL 20 MG TAB PO SCH (13:25)
--- NOTE | 2021-11-14 15:04 | CT ---
EXAMINATION TYPE: CT brain wo con DATE OF EXAM: 11/14/2021 COMPARISON: 01/16/2014 INDICATION: weakness, ams DLP: 1103.4 mGycm, Automated exposure control for dose reduction was used. CONTRAST: None CT of the brain is performed utilizing 3 mm thick sections through the posterior fossa and 3 mm thick sections through the remaining calvarium. Study is performed within 24 hours of arrival to the hosp [facility]. No abnormal hyperdensity is present to suggest an acute intracranial hemorrhage. No mass lesion is evident. No acute infarcts are evident. There is an old infarct in the right frontal lobe. There is confluent periventricular white matter hypodensity, likely on the basis of chronic white matter ischemic change s. There is ex vacuo effect on the sylvian fissure and left lateral ventricle punctate lacunar infarc t appears old right thalamus. Ventricles and sulci are prominent for the patient age. Paranasal sinuses and mastoid air cells within the [id number] are clear. IMPRESSIONS: 1. Atrophy with confluent chronic white matter ischemic changes. 2. Old right frontal lobe infarct present previously.
[2021-11-14 16:19] LABS: Glucose,Whole Blood 222 mg/dL (70-110)
[2021-11-14 18:57] LABS: C Reactive Protein 4.7 mg/dL (0.00-0.80)
[2021-11-14] MEDS: SYMBICORT 160-4.5 MCG INHALER INHALATION SCH (19:12)
[2021-11-14 19:54] LABS: Glucose,Whole Blood 231 mg/dL (70-110)
[2021-11-14] MEDS ORDERED: ATORVASTATIN 10 MG TAB PO SCH (21:00)
[2021-11-14] MEDS ORDERED: INSULIN DETEMIR (LEVEMIR) 100 UNIT/ML SYR SQ SCH (21:00)
[2021-11-14] MEDS ORDERED: MONTELUKAST 10 MG TAB PO SCH (21:00)
[2021-11-15] MEDS: ALBUTEROL HFA INHALER INHALATION SCH ×5 (00:08→12:26)
[2021-11-15 07:06] LABS: Glucose,Whole Blood 134 mg/dL (70-110)
[2021-11-15] MEDS: INSULIN ASPART (NovoLOG) 100 UNIT/ML VIAL SQ SCH ×4 (07:27→11:44)
[2021-11-15] MEDS: lisinopriL 20 MG TAB PO SCH (07:32)
[2021-11-15] MEDS: ETODOLAC 200 MG CAPSULE PO SCH (07:32)
[2021-11-15] MEDS: MULTIVITAMINS, THERA 1 EACH TAB PO SCH (07:32)
[2021-11-15] MEDS: FLUTICASONE 50MCG/SPRAY NASAL 16GM EA NOSTRIL SCH (07:32)
[2021-11-15] MEDS: ASPIRIN 81 MG PO SCH (07:32)
[2021-11-15] MEDS ORDERED: ENOXAPARIN 40 MG/0.4 ML SYRINGE SQ SCH (09:00)
[2021-11-15] MEDS: SYMBICORT 160-4.5 MCG INHALER INHALATION SCH (09:18)
[2021-11-15 11:30] LABS: Glucose,Whole Blood 160 mg/dL (70-110)
--- NOTE | 2021-11-15 11:34 | P.PN ---
Subjective Progress Note Date: 11/15/21 This is a 76-year-old male patient who was brought into the hospital because of generalized weakness a few days duration and the patient got weak to the point where he was unable to stand up and had fallen a couple of times without inflicting any IV injuries. He also reported to have some cough and congestion over the past couple of days and he tested positive for COVID 19, based on the home. It was not an outpatient basis. No significant respiratory distress and the patient's pulse ox remains above 90% on room air. He had limited cough. Minimal congestion. No issues with pain fever chills or headaches. No history of any head injury. No focal numbness or tingling. No nausea or vomiting or emesis. The patient states that. Been vaccinated and he has taken the original flu shots without taking any booster. In the emergency department, the patient was found to have no temperature, hemodynamically stable with a pulse ox of 96% on room air. EKG showed no acute abnormalities. The white cell count is 6.2 with hemoglobin of 12.9 and a platelet count of 162. Electrolytes were normal, creatinine was normal at 1.02 with a BUN of 20 and a sugar of 144. The patient's troponin was negative. Albumin was at 4.0. Lactic acid level was at 0.8 and LFTs are all within normal limits. Chest x-ray showed no acute cardiopulmonary abnormalities. Patient is slightly improved since yesterday. He is very weak still and he has profound generalized global weakness. He is on Levemir insulin 40 units once a day and NovoLog according to his scale. 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 He has also chronic white matter ischemic changes. 11/15/2021, the patient is doing well. He is getting stronger. He is able to sit up on a chair and is able to walk. He was not felt to be a good candidate for rehabilitation. His oxidation is stable and the patient is not having any respiratory distress or oxygen desaturations. His pulse ox and order of 95% on room air oxygen. LDH level was nonelevated at 174 and the CRP level was 4.7. D-dimer was at 0.73. No nausea. No vomiting. No emesis. No other complaints otherwise for now.The CAT scan of the brain was done yesterday and showed an old right frontal lobe infarct and atrophy along with chronic white matter ischemic changes. Objective - Vital Signs Vital signs: Vital Signs Temp 98.2 F 11/15/21 08:00 Pulse 85 11/15/21 08:00 Resp 18 11/15/21 08:00 BP 111/69 11/15/21 08:00 Pulse Ox 97 11/15/21 08:00 FiO2 Intake & Output 11/14/21 11/15/21 11/15/21 18:59 06:59 18:59 Intake Total 120 Output Total 350 775 Balance -230 -775 Intake: Oral 120 Output: Urine 350 775 Other: Voiding Method Urinal Urinal Diaper Diaper # Voids 3 - Exam The patient appeared well nourished and normally developed. Vital signs as documented. Head exam is unremarkable. No scleral icterus or corneal arcus noted. Neck is without jugular venous distension, thyromegaly, or carotid bruits. Carotid upstrokes are brisk bilaterally. Lungs are clear to auscultation and percussion. Cardiac exam reveals the PMI to be normally sized and situated. Rhythm is regular. First and second heart sounds normal. No murmurs, rubs or gallops. Abdominal exam reveals normal bowel sounds, no masses, no organomegaly and no aortic enlargement. Extremities are nonedematous and both femoral and pedal pulses are normal.Examination of the skin revealed no evidence of significant rashes, suspicious appearing nevi or other concerning lesions. On neurologic examination, the patient does have some motor weakness in the proxi mal muscles bilaterally at his weakness is out of symmetrical. He is awake and oriented 3. No facial asymmetry. Pupils are equal and reactive to light. No nystagmus. No clonus. - Labs CBC & Chem 7: 11/14/21 04:56 11/14/21 04:56 Labs: Abnormal Lab Results - Last 24 Hours (Table) 11/14/21 11/14/21 11/14/21 Range/Units 04:56 13:15 13:15 D-Dimer 0.73 H (<0.60) mg/L FEU POC Glucose (mg/dL) (70-110) mg/dL Hemoglobin A1c 7.5 H (0.0-6.0) % C-Reactive Protein 4.70 H (0.00-0.80) mg/dL 11/14/21 11/14/21 11/15/21 Range/Units 16:16 19:52 06:59 D-Dimer (<0.60) mg/L FEU POC Glucose (mg/dL) 222 H 231 H 134 H (70-110) mg/dL Hemoglobin A1c (0.0-6.0) % C-Reactive Protein (0.00-0.80) mg/dL Assessment and Plan Plan: Acute COVID 19 infection in a 76-year-old male patient has been vaccinated 2, original series without taking the booster shots, clinically improving and the patient is on room air oxygen for now Generalized muscle weakness in all 4 extremities mainly proximal muscles. 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
[2021-11-15 13:43] VITALS: BP 128/69; PULSE 79; RESP 16; TEMP 98.4
--- NOTE | 2021-11-16 15:49 | P.DS ---
Providers Date of admission: 11/13/21 22:59 Expected date of discharge: 11/15/21 Attending physician: Ni Ross MD [facility] Course: Final diagnosis Generalized weakness most likely secondary to his related muscle atrophy COVID-19 infection without any hypoxia Epileptic disorder Diabetes mellitus, type 2 insulin-dependent Hypertension DVT prophylaxis Full code Discharge disposition Patient is being discharged in a stable condition with guarded prognosis to home . Patient will follow-up with Dr. Gonzalez in the outpatient setting upon discharge. Patient is to also follow up with pulmonary as needed . Patient will continue on vitamins and zinc supplement on discharge. Total time taken is greater than 35 minutes. Hospital course This is a 76-year-old male who was recently admitted with weakness and also found to be positive for COVID-19. Patient was being monitored with pulmonary following and patient was asymptomatic of any respiratory symptoms. Patient with frequent falls and weakness at home and family concerned they cannot care for him. He was evaluated by physical therapy and doing well recommending home with possible home care. Patient reports to feeling well and denies any shortness of breath. Patient will be discharged home today. Currently no reports of chest pain, shortness of breath, or palpitations. Patient is afebrile. No reports of nausea or vomiting and patient is tolerating diet. Recommend possible home care in the outpatient setting. Physical exam: Gen: This is a 68-year-old male awake, alert and oriented 2, well-developed, well-nourished, obese. HEENT: Head is atraumatic, normocephalic. Pupils equal, round. Sclerae is anicteric. NECK: Supple. No JVD. No lymphadenopathy. No thyromegaly. LUNGS: Clear to auscultation. No wheezes or rhonchi. No intercostal retractions. HEART: Regular rate and rhythm. No murmur. ABDOMEN: Soft. Bowel sounds are present. No masses. No tenderness. EXTREMITIES: No pedal edema. No calf tenderness. NEUROLOGICAL: Patient is awake, alert and oriented x3. Cranial nerves 2 through 12 are grossly intact. Please refer to medication reconciliation sheet for a list of medications. The impression and plan of care has been dictated by Livia Ackerman, Nurse Practitioner as directed. Dr. Sanjay MD I have performed a history and examination and MDM of this patient, discussed the same with the dictator, and agree with the dictator's assessment and plan as written ,documented as a scribe. Based on total visit time, I have performed more than 50% of the visit. Patient Condition at Discharge: Stable Plan - Discharge Summary New Discharge Prescriptions: New Ascorbic Acid [Vitamin C] 1,000 mg PO DAILY 30 Days #30 tablet Cholecalciferol [Vitamin D3 (25 Mcg = 1000 Iu)] 25 mcg PO BID #60 tab Zinc Sulfate 220 mg PO DAILY 14 Days #14 capsule Continue Fluticasone Propionate [Flonase] 2 spray EA NOSTRIL DAILY Aspirin EC [Ecotrin Low Dose] 81 mg PO DAILY Simvastatin [Zocor] 20 mg PO HS Diclofenac Sodium [Voltaren] 50 mg PO BID Insulin Glargine,Hum.rec.anlog [Lantus Solostar Pen] 40 units SQ HS Insulin Aspart [NovoLOG Flexpen] See Protocol SQ AC-TID Mometasone/Formoterol [Dulera 200 Mcg-5 Mcg Inhaler] 2 puff PO RT-BID Albuterol Sulfate [Albuterol Sulfate Hfa] 2 puff PO RT-Q4H Multivitamins, Thera [Multivitamin (formulary)] 1 tab PO DAILY Montelukast Sodium [Singulair] 10 mg PO HS Benazepril HCl [Lotensin] 20 mg PO DAILY Cyanocobalamin [Vitamin B-12 Injection] 1,000 mcg SQ QMONTHLY Discharge Medication List Aspirin EC [Ecotrin Low Dose] 81 mg PO DAILY 01/16/14 [History] Diclofenac Sodium [Voltaren] 50 mg PO BID 01/16/14 [History] Fluticasone Propionate [Flonase] 2 spray EA NOSTRIL DAILY 01/16/14 [History] Insulin Aspart [NovoLOG Flexpen] See Protocol SQ AC-TID 01/16/14 [History] Insulin Glargine,Hum.rec.anlog [Lantus Solostar Pen] 40 units SQ HS 01/16/14 [History] Simvastatin [Zocor] 20 mg PO HS 01/16/14 [History] Albuterol Sulfate [Albuterol Sulfate Hfa] 2 puff PO RT-Q4H 11/14/21 [History] Benazepril HCl [Lotensin] 20 mg PO DAILY 11/14/21 [History] Cyanocobalamin [Vitamin B-12 Injection] 1,000 mcg SQ QMONTHLY 11/14/21 [History] Mometasone/Formoterol [Dulera 200 Mcg-5 Mcg Inhaler] 2 puff PO RT-BID 11/14/21 [History] Montelukast Sodium [Singulair] 10 mg PO HS 11/14/21 [History] Multivitamins, Thera [Multivitamin (formulary)] 1 tab PO DAILY 11/14/21 [History] Ascorbic Acid [Vitamin C] 1,000 mg PO DAILY 30 Days #30 tablet 11/15/21 [Rx] Cholecalciferol [Vitamin D3 (25 Mcg = 1000 Iu)] 25 mcg PO BID #60 tab 11/15/21 [Rx] Zinc Sulfate 220 mg PO DAILY 14 Days #14 capsule 11/15/21 [Rx] Follow up Appointment(s)/Referral(s): Bibi Gonzalez MD [STAFF PHYSICIAN] - 1-2 days (Office with no answer, patient to call and schedule appointment.) Patient Instructions/Handouts: COVID-19 (Coronavirus Disease 2019) (DC) Activity/Diet/Wound Care/Special Instructions: Activity Limited until follow-up Follow-up with primary care provider on discharge Continue taking medications as prescribed Continue to isolate and wear mask and frequent handwashing May require home care on discharge Discharge Disposition: HOME WITH HOME HEALTH SERVICES
--- NOTE | 2021-11-23 09:18 | CDI ---
[facility] [place] [address] [place] [address] Date: From: Maci Acuña Phone: Admit Date: 11/13/2021 10:59:00 PM Patient Name: King Null Visit Number: [id number] Discharge Date: Payor: MEDICARE HMO Dr. Bharat Grace,[facility] Please provide clarification as to the diagnosis of epileptic disorder. H&P under assessment states "Epileptic disorder resumed on home regimen along with sliding scale titration depending on blood sugars. No epileptic medicine is listed. Please clarify. Please respond to this query below the line at the bottom. Thank you for your kind consideration. MTDD
--- NOTE | 2021-12-23 05:13 | AS ---
Documentation Clarification Form Date: 12/23/2021 05:05:46 AM From: Maci Acuña Phone: Admit Date: 11/13/2021 10:59:00 PM Patient Name: King Null Visit Number: [id number] Discharge Date: Payor: MEDICARE HMO Dr. Ni Ross Please provide clarification as to the diagnosis of epileptic disorder. H&P under assessment states "Epileptic disorder resumed on home regimen along with sliding scale titration depending on blood sugars. No epileptic medicine is listed. Please clarify. Please respond to this query below the line at the bottom. Thank you for your kind consideration. __ Diabetes Mellitus; patient will be resumed on home regimen along with sliding scale titration depending on blood sugars next and-hyperlipidemia MTDD
--- NOTE | 2021-12-30 12:24 | CDI ---
[facility] [place] [address] [place] [address] Date: 12/30/2021 12:20:00 PM From: Maci Acuña Phone: Admit Date: 11/13/2021 10:59:00 PM Patient Name: King Null Visit Number: [id number] Discharge Date: Payor: MEDICARE HMO Dr. Ni Ross Please provide clarification as to the diagnosis of epileptic disorder. H&P under assessment states "Epileptic disorder resumed on home regimen along with sliding scale titration depending on blood sugars. No epileptic medicine is listed. Please clarify. Please respond to this query below the line at the bottom. Thank you for your kind consideration. _ QUERY IS NOT MINE TO ANSWER. H&P done by Dr Sanjay CHANG
--- NOTE | 2022-01-04 14:40 | CDI ---
[facility] [place] [address] [place] [address] Date: 01/04/2022 02:35:11 PM From: Maci Acuña Phone: Admit Date: 11/13/2021 10:59:00 PM Patient Name: King Null Visit Number: [id number] Discharge Date: Payor: MEDICARE HMO Dr Bharat Grace, Please provide clarification as to the diagnosis of epileptic disorder. H&P under assessment states "Epileptic disorder resumed on home regimen along with sliding scale titration depending on blood sugars. No epileptic medicine is listed. Please clarify. Please respond to this query below the line at the bottom. Thank you for your kind consideration, ___My assesement as per documentation can't speak for other doctors MTDD
== END 2021-11-15 15:38 | disposition home health service (06) ==
LOC: EC 20:14 → 4SSUR 22:59
PROVIDERS: ADMIT Internal Medicine; ATTEND Internal Medicine
DX: U07.1 COVID-19 (principal); R53.1 Weakness; M62.50 Muscle wasting and atrophy, not elsewhere classified, unspecified site; R29.6 Repeated falls; E11.9 Type 2 diabetes mellitus without complications; I10 Essential (primary) hypertension; J30.9 Allergic rhinitis, unspecified; E78.5 Hyperlipidemia, unspecified; Z86.73 Personal history of transient ischemic attack (TIA), and cerebral infarction without residual deficits; Z83.3 Family history of diabetes mellitus; E66.9 Obesity, unspecified; Z68.31 Body mass index [BMI] 31.0-31.9, adult; R90.82 White matter disease, unspecified; Z79.51 Long term (current) use of inhaled steroids; Z79.82 Long term (current) use of aspirin; Z79.4 Long term (current) use of insulin; Z79.899 Other long term (current) drug therapy
CPT/HCPCS: 96372; 99285; 36415; 94640 ×3; 93005; 97162; 97166; 85379; 80053 ×2; 83605; 83615; 83735; 84484; 85025 ×2; 85610; 85730; 86140; 81001; 83036; 87635; 71045; 70450; G0378 ×3; J1650

== ENCOUNTER 2022-07-31 07:13 | Emergency (ER) | payer MEDICARE ==
[2022-07-31 07:21] VITALS: RESP 18; TEMP 98.6
--- NOTE | 2022-07-31 07:42 | ED ---
General Adult HPI - General Chief complaint: Back Pain/Injury Stated complaint: Kidney Stones Time Seen by Provider: 07/31/22 07:17 Source: patient Mode of arrival: ambulatory Limitations: no limitations - History of Present Illness Initial comments: Dictation was produced using [employer] dictation software. please excuse any grammatical, word or spelling errors. Chief Complaint: 76-year-old male presents with right lower back pain History of Present Illness: Patient is 76-year-old male who has past medical history of Parkinson's, CVA and mental debility. History of present illness obtained from at the bedside. States that over the last several days approximately one week patient has been complaining of right-sided flank pain. Patient was diagnosed with kidney stone 10 years ago. Has not had an issue with kidney stone since. is concerned that patient has recurrence. He has had some retching. He has not had any emesis but has been nauseated. Patient having trouble walking secondary to his symptoms. Patient is a poor historian at this time. The ROS documented in this emergency department record has been reviewed and confirmed by me. Those systems with pertinent positive or negative responses have been documented in the HPI. All other systems are other negative and/or noncontributory. - Related Data Home Medications Medication Instructions Recorded Confirmed Aspirin EC [Ecotrin Low Dose] 81 mg PO DAILY 01/16/14 11/14/21 Diclofenac Sodium [Voltaren] 50 mg PO BID 01/16/14 11/14/21 Fluticasone Propionate [Flonase] 2 spray EA NOSTRIL DAILY 01/16/14 11/14/21 Insulin Aspart [NovoLOG Flexpen] See Protocol SQ AC-TID 01/16/14 11/14/21 Insulin Glargine,Hum.rec.anlog 40 units SQ HS 01/16/14 11/14/21 [Lantus Solostar Pen] Simvastatin [Zocor] 20 mg PO HS 01/16/14 11/14/21 Albuterol Sulfate [Albuterol 2 puff PO RT-Q4H 11/14/21 11/14/21 Sulfate Hfa] Benazepril HCl [Lotensin] 20 mg PO DAILY 11/14/21 11/14/21 Cyanocobalamin [Vitamin B-12 1,000 mcg SQ QMONTHLY 11/14/21 11/14/21 Injection] Mometasone/Formoterol [Dulera 200 2 puff PO RT-BID 11/14/21 11/14/21 Mcg-5 Mcg Inhaler] Montelukast Sodium [Singulair] 10 mg PO HS 11/14/21 11/14/21 Multivitamins, Thera [Multivitamin 1 tab PO DAILY 11/14/21 11/14/21 (formulary)] Previous Rx's Medication Instructions Recorded Ascorbic Acid [Vitamin C] 1,000 mg PO DAILY 30 Days #30 11/15/21 tablet Cholecalciferol [Vitamin D3 (25 25 mcg PO BID #60 tab 11/15/21 Mcg = 1000 Iu)] Zinc Sulfate 220 mg PO DAILY 14 Days #14 capsule 11/15/21 Allergies Allergy/AdvReac Type Severity Reaction Status Date / Time Penicillins Allergy Rash/Hives Verified 07/31/22 07:21 sulfamethoxazole AdvReac Nausea Verified 07/31/22 07:21 [From Bactrim] trimethoprim [From Bactrim] AdvReac Nausea Verified 07/31/22 07:21 Review of Systems ROS Statement: Those systems with pertinent positive or pertinent negative responses have been documented in the HPI. ROS Other: All systems not noted in ROS Statement are negative. Past Medical History Past Medical History: CVA/TIA, Diabetes Mellitus, Hyperlipidemia, Hypertension Additional Past Medical History / Comment(s): stroke defecits: right sided weakness and memory impairment, History of Any Multi-Drug Resistant Organisms: None Reported Past Surgical History: Orthopedic Surgery Additional Past Surgical History / Comment(s): neck fushion, rotator cuff repair, Past Psychological History: No Psychological Hx Reported Smoking Status: Never smoker Past Alcohol Use History: None Reported Past Drug Use History: None Reported - Past Family History Mother Family Medical History: Diabetes Mellitus General Exam - General Exam Comments Initial Comments: PHYSICAL EXAM: General Impression: Alert and oriented x2/4, not in acute distress HEENT: Normocephalic atraumatic, extra-ocular movements intact, pupils equal and reactive to light bilaterally, mucous membranes moist. Cardiovascular: Heart regular rate and rhythm Chest: Able to complete full sentences, no retractions, no tachypnea Abdomen: abdomen soft, non-tender, non-distended, no organomegaly Musculoskeletal: Pulses present and equal in all extremities, no peripheral edema Motor: no focal deficits noted Neurological: CN II-XII grossly intact, no focal motor or sensory deficits noted Skin: Intact with no visualized rashes Psych: Normal affect and mood Limitations: no limitations Course Vital Signs 07/31/22 07/31/22 07:17 09:00 Temperature 98.6 F Pulse Rate 108 H 94 Respiratory 18 18 Rate Blood Pressure 184/78 170/90 O2 Sat by Pulse 97 98 Oximetry EKG Findings - EKG Comments: EKG Findings:: My EKG interpretation: Ventricular rate 102, sinus tachycardia, WV interval 224, QRS 114, QTc 393. No WV prolongation, no QTC prolongation, no ST or T-wave changes noted. Overall, this EKG is unremarkable Medical Decision Making - Medical Decision Making Was pt. sent in by a medical professional or institution (Dr. PA, VIDEO MACHINES MECHANIC, urgent care, hospital, or prison...) When possible be specific @ -No Did you speak to anyone other than the patient for history (EMS, parent, family, police, friend...)? What history was obtained from this source @ -History of present illness obtained from as stated in HPI Did you review nursing and triage notes (agree or disagree)? Why? @ -I reviewed and agree with nursing and triage notes Were old charts reviewed (outside hosp., previous admission, EMS record, old EKG, old radiological studies, urgent care reports/EKG's, prison records)? Report findings @ -No old charts were reviewed Differential Diagnosis (chest pain, altered mental status, abdominal pain women, abdominal pain men, vaginal bleeding, musculoskeletal, weakness, fever, dyspnea, syncope, headache, dizziness, GI bleed, back pain, seizure, CVA, palpatations, mental health)? @ -Differential Abdominal Pain Men: Appendicitis, cholecystitis, diverticulosis, ischemic bowel, pancreatitis, hepatitis, UTI, gastroenteritis, AAA, incarcerated hernia, bowel obstruction, constipation, inflammatory bowel, hepatitis, peptic ulcer disease, splenic infarction, perforated viscus, testicular torsion, this is not meant to be an all-inclusive list EKG interpreted by me (3pts min.). @ -As above X-rays interpreted by me (1pt min.). @ -None done CT interpreted by me (1pt min.). @ -Computed tomography scan of the abdomen and pelvis without contrast shows right-sided nephrolithiasis and 25 mm calculi in the urinary bladder with mild hydronephrosis suggesting that stones recently passed U/S interpreted by me (1pt. min.). @ -None done What testing was considered but not performed or refused? (CT, X-rays, U/S, labs)? Why? @ -None What meds were considered but not given or refused? Why? @ -None Did you discuss the management of the patient with other professionals (professionals i.e. DrLoki, PA, VIDEO MACHINES MECHANIC, lab, RT, psych nurse, social media job titles, senior enlisted advisor, teacher, identification officer, continuous pillowcase cutter)? Give summary @ -No Was smoking cessation discussed for >3mins.? @ -No Was critical care preformed (if so, how long)? @ -No Were there social determinants of health that impacted care today? How? (Homelessness, low income, unemployed, alcoholism, drug addiction, transportation, low edu. Level, literacy, decrease access to med. care, shelter, rehab)? @ -No Was there de-escalation of care discussed even if they declined (Discuss DNR or withdrawal of care, Hospice)? DNR status @ -No What co-morbidities impacted this encounter? (DM, HTN, Smoking, COPD, CAD, Cancer, CVA, ARF, Chemo, Hep., AIDS, mental health diagnosis, sleep apnea, morbid obesity)? @ -None Was patient admitted / discharged? Hospital course, mention meds given and route, prescriptions, significant lab abnormalities, going to OR and other pertinent info. @ -76-year-old male past medical history of kidney stones presents with 1 week of right-sided flank pain. Vital signs upon arrival are within acceptable limits. Laboratory evaluation shows potassium 5.2 with hemolysis. Kidney function is slightly elevated at 2.11 with BUN of 37. Patient reevaluated at bedside at 9:00 and found to be stable medical condition. Patient is well- appearing without any symptoms. Computed tomography scan suggests that patient had passed the stones at the time of computed tomography scan. No ureteral stones. Patient will be discharged to follow up with close follow-up with primary care doctor due to elevation of kidney function Undiagnosed new problem with uncertain prognosis? @ -No Drug Therapy requiring intensive monitoring for toxicity (Heparin, Nitro, Insulin, Cardizem)? @ -No Were any procedures done? @ -No Diagnosis/symptom? Acute, or Chronic, or Acute on Chronic? Uncomplicated (without systemic symptoms) or Complicated (systemic symptoms)? @ -1. Symptomatic nephrolithiasis, 2. Acute kidney injury Side effects of treatment? @ -No Exacerbation, Progression, or Severe Exacerbation? @ -No Poses a threat to life or bodily function? How? (Chest pain, [place], [place], pneumonia, PE, COPD, DKA, ARF, appy, cholecystitis, CVA, Diverticulitis, Homicidal, Suicidal, threat to staff... and all critical care pts) @ -yes - Lab Data Result diagrams: 07/31/22 08:04 07/31/22 08:04 Lab Results 07/31/22 07/31/22 07/31/22 Range/Units 08:04 08:04 08:04 WBC 10.6 (3.8-10.6) k/uL RBC 4.22 L (4.30-5.90) m/uL Hgb 13.2 (13.0-17.5) gm/dL Hct 40.1 (39.0-53.0) % MCV 94.9 (80.0-100.0) fL MCH 31.1 (25.0-35.0) pg MCHC 32.8 (31.0-37.0) g/dL RDW 13.0 (11.5-15.5) % Plt Count 197 (150-450) k/uL MPV 8.2 Neutrophils % 83 % Lymphocytes % 9 % Monocytes % 5 % Eosinophils % 2 % Basophils % 0 % Neutrophils # 8.8 H (1.3-7.7) k/uL Lymphocytes # 1.0 (1.0-4.8) k/uL Monocytes # 0.5 (0-1.0) k/uL Eosinophils # 0.2 (0-0.7) k/uL Basophils # 0.0 (0-0.2) k/uL Sodium 138 (137-145) mmol/L Potassium 5.2 H (3.5-5.1) mmol/L Chloride 107 (98-107) mmol/L Carbon Dioxide 21 L (22-30) mmol/L Anion Gap 10 mmol/L BUN 37 H (9-20) mg/dL Creatinine 2.11 H (0.66-1.25) mg/dL Est GFR (CKD-EPI)AfAm 34 (>60 ml/min/1.73 sqM) Est GFR (CKD-EPI)NonAf 29 (>60 ml/min/1.73 sqM) Glucose 264 H (74-99) mg/dL Calcium 8.7 (8.4-10.2) mg/dL Total Bilirubin 0.7 (0.2-1.3) mg/dL AST 26 (17-59) U/L ALT 21 (4-49) U/L Alkaline Phosphatase 59 (38-126) U/L Total Protein 7.0 (6.3-8.2) g/dL Albumin 4.0 (3.5-5.0) g/dL Urine Color Light Yellow Urine Appearance Clear (Clear) Urine pH 5.0 (5.0-8.0) Ur Specific [place] 1.015 (1.001-1.035) Urine Protein Trace H (Negative) Urine Glucose (UA) 4+ H (Negative) Urine Ketones Trace H (Negative) Urine Blood Negative (Negative) Urine Nitrite Negative (Negative) Urine Bilirubin Negative (Negative) Urine Urobilinogen <2.0 (<2.0) mg/dL Ur Leukocyte Esterase Negative (Negative) Disposition Clinical Impression: Kidney stone Disposition: HOME SELF-CARE Condition: Fair Instructions (If sedation given, give patient instructions): Kidney Stones (ED) Is patient prescribed a controlled substance at d/c from ED?: No Referrals: Kendell Kaye MD [STAFF PHYSICIAN] - 1-2 days Time of Disposition: 09:16
[2022-07-31 08:18] LABS: Basophils % (A) 0 %; Eosinophils # (A) 0.2 k/uL (0-0.7); Eosinophils % (A) 2 %; HCT 40.1 % (39.0-53.0); HGB 13.2 gm/dL (13.0-17.5); Lymphocytes % (A) 9 %; MCH 31.1 pg (25.0-35.0); MCHC 32.8 g/dL (31.0-37.0); MCV 94.9 fL (80.0-100.0); Mean Platelet Volume 8.2; Monocytes # (A) 0.5 k/uL (0-1.0); Monocytes % (A) 5 %; Neutrophils # (A) 8.8 k/uL (1.3-7.7); Neutrophils % (A) 83 %; Platelet Count 197 k/uL (150-450); RBC 4.22 m/uL (4.30-5.90); WBC 10.6 k/uL (3.8-10.6)
--- NOTE | 2022-07-31 08:31 | CT ---
EXAMINATION TYPE: CT abdomen pelvis wo con DATE OF EXAM: 07/31/2022 HISTORY: Right flank pain; Hx of kidney stone [address] DLP: 831.6 mGycm. Automated Exposure Control for Dose Reduction was Utilized. TECHNIQUE: CT scan of the abdomen and pelvis is performed without oral or IV contrast. COMPARISON: NONE FINDINGS: Within the limitations of a non-contrast study, the following observations are made. LUNG BASES: Coronary artery calcification is present.. LIVER/GB: No significant abnormality is appreciated. PANCREAS: No significant abnormality is seen. SPLEEN: No significant abnormality is seen. ADRENALS: No significant abnormality is seen. KIDNEYS: No left-sided nephrolithiasis. Incidental 1.3 cm simple appearing thin-walled cyst anteriorl y left kidney midpole level axial image 38. There are approximately 4 right renal calculi including 2 adjacent 5 mm calculi lower pole right kidn ey coronal image 69. There is [id number] right-sided hydronephrosis with 2 intraluminal calcul i in the bladder measuring near 5 mm in size. Likely calculus has recently passed into bladder throug h the right ureter. BOWEL: Moderate right-sided colonic fecal prominence. No suspicious small or large bowel dilatation. Appendix is normal in size. GENITAL ORGANS: Normal-sized prostate with central calcifications. LYMPH NODES: No greater than 1cm abdominal or pelvic lymph nodes are appreciated. OSSEOUS STRUCTURES: Moderate axial joint space loss both hips with acetabular spurring. Vacuum disc p henomenon with mild to moderate disc space narrowing L3-L4 level. OTHER: Small fat-containing left inguinal hernia. IMPRESSION: Right-sided nephrolithiasis. There is mild/moderate right-sided hydronephrosis with 2-- 5 mm calculi in the urinary bladder. Suspect at least one is recently passed from the right kidney an d ureter.
[2022-07-31 08:35] LABS: ALT 21 U/L (4-49); AST 26 U/L (17-59); African American GFR (CKD) 34 (>60 ml/min/1.73 sqM); Alkaline Phosphatase 59 U/L (38-126); Anion Gap 10 mmol/L; Blood Urea Nitrogen 37 mg/dL (9-20); Calcium 8.7 mg/dL (8.4-10.2); Carbon Dioxide 21 mmol/L (22-30); Chloride 107 mmol/L (98-107); Glucose 264 mg/dL (74-99); Non-African American GFR(CKD) 29 (>60 ml/min/1.73 sqM); Sodium 138 mmol/L (137-145); Total Bilirubin 0.7 mg/dL (0.2-1.3)
[2022-07-31 08:50] LABS: Potassium 5.2 mmol/L (3.5-5.1)
[2022-07-31 08:57] LABS: Appearance,Urine Clear (Clear); Bilirubin,Urine Negative (Negative); Blood,Urine Negative (Negative); Color,Urine Light Yellow; Glucose,Urine (UA) 4+ (Negative); Ketones,Urine Trace (Negative); Leukocyte Esterase,Urine Negative (Negative); Nitrite,Urine Negative (Negative); Protein,Urine Trace (Negative); Specific Gravity,Urine 1.015 (1.001-1.035); Urobilinogen,Urine <2.0 mg/dL (<2.0)
[2022-07-31 09:04] VITALS: BP 170/90; PULSE 94
== END 2022-07-31 09:29 | disposition home or self-care (01) ==
LOC: EC 07:13
DX: N13.2 Hydronephrosis with renal and ureteral calculous obstruction (principal); N21.0 Calculus in bladder; I10 Essential (primary) hypertension; E11.9 Type 2 diabetes mellitus without complications; E78.5 Hyperlipidemia, unspecified; Z79.4 Long term (current) use of insulin; Z79.51 Long term (current) use of inhaled steroids; Z79.82 Long term (current) use of aspirin; Z79.899 Other long term (current) drug therapy; Z88.0 Allergy status to penicillin; Z88.1 Allergy status to other antibiotic agents; Z88.2 Allergy status to sulfonamides
CPT/HCPCS: 36415; 74176; 80053; 81003; 85025; 93005; 99284

== ENCOUNTER → 2022-10-03 | Outpatient (CLI) | payer MEDICARE ==
[2022-10-03 11:04] LABS: ALT 29 U/L (10-49); AST 20 U/L (14-35); Albumin 4.3 d/dL (3.8-4.9); Albumin/Globulin Ratio 1.54 Ratio (1.60-3.17); Alkaline Phosphatase 70 U/L (41-126); BUN/Creat Ratio 17.73 Ratio (12.00-20.00); Blood Urea Nitrogen 19.5 mg/dL (9.0-27.0); Calcium 9.2 mg/dL (8.7-10.3); Carbon Dioxide 23.5 mmol/L (21.6-31.8); Chloride 105 mmol/L (96-109); Chol/HDL Ratio 4.24 Ratio; Globulin 2.8 d/dL (1.6-3.3); Glucose 150 mg/dL (70-110); LDL Cholesterol,Calculated 95.4 mg/dL (0.0-131.0); Potassium 5.1 mmol/L (3.5-5.5); Sodium 140 mmol/L (135-145); Total Bilirubin 0.5 mg/dL (0.3-1.2); Total Protein 7.1 d/dL (6.2-8.2)
== END | disposition home or self-care (01) ==
LOC: LABWHC1 07:48
PROVIDERS: ATTEND Internal Medicine Endocrinology, Diabetes & Metabolism
DX: E11.65 Type 2 diabetes mellitus with hyperglycemia (principal)
CPT/HCPCS: 36415; 80053; 80061; 82043; 82570; 83036; 84443

== ENCOUNTER → 2023-04-24 | Outpatient (CLI) | payer MEDICARE ==
[2023-04-24 11:07] LABS: Basophils # (A) 0.05 X 10*3/uL (0.00-0.10); Basophils % (A) 0.6 %; Eosinophils # (A) 0.45 X 10*3/uL (0.04-0.35); Eosinophils % (A) 5.8 %; HCT 42.4 % (39.6-50.0); HGB 13.7 g/dL (13.0-17.0); Lymphocytes # (A) 2.15 X 10*3/uL (0.90-5.00); Lymphocytes % (A) 27.7 %; MCH 30.4 pg (27.0-32.0); MCHC 32.3 g/dL (32.0-37.0); Mean Platelet Volume 10.9 FL (9.5-12.2); Monocytes # (A) 0.54 X 10*3/uL (0.20-1.00); NRBC Per 100 WBC 0 X 10*3/uL (0.00-0.01); Neutrophils # (A) 4.55 X 10*3/uL (1.80-7.70); Neutrophils % (A) 58.6 %; Platelet Count 215 X 10*3/uL (140-440); RBC 4.51 X 10*6/uL (4.40-5.60); RDW 12.9 % (11.5-14.5); WBC 7.76 X 10*3/uL (4.50-10.00)
[2023-04-24 17:02] LABS: ALT 27 U/L (10-49); AST 21 U/L (14-35); Albumin 4.4 g/dL (3.8-4.9); Albumin/Globulin Ratio 1.57 Ratio (1.60-3.17); Alkaline Phosphatase 73 U/L (41-126); Calcium 9.4 mg/dL (8.7-10.3); Carbon Dioxide 24.5 mmol/L (21.6-31.8); Chloride 105 mmol/L (96-109); Chol/HDL Ratio 3.54 Ratio; Globulin 2.8 g/dL (1.6-3.3); Glucose 144 mg/dL (70-110); LDL Cholesterol,Calculated 73.5 mg/dL (0.0-131.0); Potassium 5.2 mmol/L (3.5-5.5); Prostate Specific Antigen 1.08 ng/mL (0.000-6.500); Sodium 140 mmol/L (135-145); T4, Free (Free Thyroxine) 1.44 ng/dL (0.80-1.80); Total Bilirubin 0.4 mg/dL (0.3-1.2); Total Protein 7.2 g/dL (6.2-8.2)
== END | disposition home or self-care (01) ==
LOC: LABWHC1 07:20
PROVIDERS: ATTEND Internal Medicine Critical Care Medicine
DX: Z00.00 Encounter for general adult medical examination without abnormal findings (principal); Z12.5 Encounter for screening for malignant neoplasm of prostate; I10 Essential (primary) hypertension; I63.9 Cerebral infarction, unspecified; E78.5 Hyperlipidemia, unspecified; E11.9 Type 2 diabetes mellitus without complications
CPT/HCPCS: 84439; 80061; 80053; 84443; 85025; 82306; 83036; 36415; G0103; 84153

== ENCOUNTER → 2023-11-27 | Outpatient (CLI) | payer MEDICARE ==
[2023-11-27 11:47] LABS: ALT 23 U/L (10-49); AST 15 U/L (14-35); Albumin 4.3 g/dL (3.8-4.9); Albumin/Globulin Ratio 1.59 Ratio (1.60-3.17); Alkaline Phosphatase 80 U/L (41-126); BUN/Creat Ratio 18.53 Ratio (12.00-20.00); Blood Urea Nitrogen 27.8 mg/dL (9.0-27.0); Calcium 9.1 mg/dL (8.7-10.3); Carbon Dioxide 24.1 mmol/L (21.6-31.8); Chloride 103 mmol/L (96-109); Globulin 2.7 g/dL (1.6-3.3); Glucose 256 mg/dL (70-110); LDL Cholesterol,Calculated 71.1 mg/dL (0.0-131.0); Potassium 4.6 mmol/L (3.5-5.5); Sodium 137 mmol/L (135-145); Total Bilirubin 0.5 mg/dL (0.3-1.2)
== END | disposition home or self-care (01) ==
LOC: LABWHC1 08:17
PROVIDERS: ATTEND Internal Medicine Endocrinology, Diabetes & Metabolism
DX: E11.65 Type 2 diabetes mellitus with hyperglycemia (principal)
CPT/HCPCS: 36415; 80053; 80061; 82043; 82570; 83036; 84443

== ENCOUNTER → 2024-03-06 | Outpatient (CLI) | payer MEDICARE ==
[2024-03-06 19:13] LABS: ALT 12 U/L (10-49); AST 17 U/L (14-35); Albumin 4.2 g/dL (3.8-4.9); Albumin/Globulin Ratio 1.68 Ratio (1.60-3.17); Alkaline Phosphatase 80 U/L (41-126); BUN/Creat Ratio 22.43 Ratio (12.00-20.00); Blood Urea Nitrogen 31.4 mg/dL (9.0-27.0); Calcium 9.2 mg/dL (8.7-10.3); Carbon Dioxide 21.6 mmol/L (21.6-31.8); Chloride 108 mmol/L (96-109); Chol/HDL Ratio 3.18 Ratio; Globulin 2.5 g/dL (1.6-3.3); Glucose 159 mg/dL (70-110); LDL Cholesterol,Calculated 66.2 mg/dL (0.0-131.0); Potassium 4.7 mmol/L (3.5-5.5); Sodium 141 mmol/L (135-145); Total Bilirubin 0.3 mg/dL (0.3-1.2); Total Protein 6.7 g/dL (6.2-8.2)
== END | disposition home or self-care (01) ==
LOC: LABWHC1 07:35
PROVIDERS: ATTEND Internal Medicine Endocrinology, Diabetes & Metabolism
DX: E11.65 Type 2 diabetes mellitus with hyperglycemia (principal)
CPT/HCPCS: 36415; 80053; 80061; 82043; 82570; 83036; 84443

== ENCOUNTER → 2024-06-04 | Outpatient (CLI) | payer MEDICARE ==
[2024-06-04 11:12] LABS: ALT 25 U/L (10-49); AST 19 U/L (14-35); Albumin/Globulin Ratio 1.48 Ratio (1.60-3.17); Alkaline Phosphatase 83 U/L (41-126); BUN/Creat Ratio 20.46 Ratio (12.00-20.00); Blood Urea Nitrogen 26.6 mg/dL (9.0-27.0); Carbon Dioxide 24.7 mmol/L (21.6-31.8); Chloride 105 mmol/L (96-109); Globulin 2.7 g/dL (1.6-3.3); Glucose 189 mg/dL (70-110); Potassium 4.5 mmol/L (3.5-5.5); Sodium 140 mmol/L (135-145); Total Bilirubin 0.5 mg/dL (0.3-1.2); Total Protein 6.7 g/dL (6.2-8.2)
== END | disposition home or self-care (01) ==
LOC: LABWHC1 07:20
PROVIDERS: ATTEND Internal Medicine Endocrinology, Diabetes & Metabolism
DX: E11.65 Type 2 diabetes mellitus with hyperglycemia (principal)
CPT/HCPCS: 36415; 80053; 83036

== ENCOUNTER → 2024-09-09 | Outpatient (CLI) | payer MEDICARE | END | disposition home or self-care (01) | LOC: LABWHC1 07:21 | PROVIDERS: ATTEND Internal Medicine Endocrinology, Diabetes & Metabolism | DX: E11.65 Type 2 diabetes mellitus with hyperglycemia (principal) | CPT/HCPCS: 36415; 83036; 84443 ==